=== PATIENT | female | born 1945 | race Caucasian/White ===

== ENCOUNTER 2024-11-06 17:28 | Outpatient (CLI) | payer MEDICARE, SELFPAY ==
--- NOTE | 2024-11-06 16:30 | LES_PTH ---
PATIENT: LUCY PEREIRA LOC: [facility] U#:[id number] AGE/SX: 79/F ROOM: RE11/06/[address]: Dr. Gerry Alvarez MD : 1945 BED: DIS: 11/06/2024 SPEC #: [id number] RECD: 11/06/24 17:20 STATUS: DOUGLAS REObdulio #: [id number] LUCRETIA: 11/06/24 16:[address]: Gerry Alvarez DEPT: SURGICAL PATHOLOGY RECD BY: Sarah Berger ENTERED: 11/07/24 07:32 SP TYPE: Lesion OTHR DR: No Primary Care Phys Tissues: Axilla, NOS Procedures: Immunohistochemical Stains Special Stain Group I Surgery Specimen Level IV GMS Stain (control) HEADER OPERATION: Biopsy of right axillary PRE-OP DIAGNOSIS: Right axillary TISSUE SUBMITTED: A- Right axillary punch biopsy MICROSCOPIC DIAGNOSIS A. Skin, right axilla, punch biopsy: * Ulceration with neutrophil crust. * A PASD stain is negative for fungal organisms. MICROSCOPIC DESCRIPTION Slides are reviewed. All matched controls reacted appropriately. These tests were developed and their performance characteristics determined by [facility]. They may not have been cleared or approved by the U.S. Food and Drug Administration. The FDA has determined that such clearance or approval is not necessary. The above immunohistochemical/dualISH markers are ordered and reviewed by the Pathologist. GROSS DESCRIPTION A. Received in formalin in a container labeled with the patient's name, date of , and biopsy right axillary is an unoriented and cylindrical punch biopsy of white-rivera skin measuring 0.6 x 0.5 cm with a depth of 0.6 cm. The epidermis exhibits a 0.5 x 0.2 cm rivera-yellow, raised, and roughened lesion that abuts the peripheral margin. The remaining epidermis is white-rivera and smooth. The deep margin is inked green, and it is bisected to reveal uniform white-lott surfaces. Submitted entirely in A1. [facility] 12/19/2024 CPT:00747, [id number] ADDENDUM ADDENDUM ADDENDUM ADDENDUM 12/23/2024 13:34 ADDENDUM 12/23/2024 13:34 ADDENDUM 12/23/2024 13:34 ADDENDUM 12/23/2024 13:34 ADDENDUM 12/23/2024 13:34 This case was reviewed at Dr Marvin Alvarez's request. The tissue is negative for evidence of metastatic carcinoma (pankeratin IHC and recut H&E).
== END 2024-11-06 23:59 | disposition home or self-care (01) ==
PROVIDERS: Referring Provider Surgery Plastic and Reconstructive Surgery; Visit Provider Surgery Plastic and Reconstructive Surgery
DX: L98.499 Non-pressure chronic ulcer of skin of other sites with unspecified severity (principal)
CPT/HCPCS: 88305; 88312

== ENCOUNTER → 2024-11-21 | Outpatient (CLI) | payer MEDICARE, SELFPAY ==
--- NOTE | 2024-11-21 13:00 | UL_PTH ---
PATIENT: LUCY PEREIRA LOC: [facility] U#:[id number] AGE/SX: 79/F ROOM: RE11/21/[address]: Dr. Gerry Alvarez MD : 1945 BED: DIS: 11/21/2024 SPEC #: [id number] RECD: 11/21/24 17:38 STATUS: DOUGLAS VAUGHN #: [id number] LUCRETIA: 11/21/24 13:[address]: Gerry Alvarez DEPT: SURGICAL PATHOLOGY RECD BY: Jose Miguel Macdonald ENTERED: 11/24/24 07:21 SP TYPE: ULCER OT DR: No Primary Care Phys Tissues: A - ULCER B - ULCER Procedures: Immunohistochemical Stains Special Stain Group I Surgery Specimen Level III GMS Stain (control) IHC Stain ADDITIONAL HEADER OPERATION: Biopsy PRE-OP DIAGNOSIS: Axillary ulcers TISSUE SUBMITTED:A- Medial axillary ulcer, B- Lateral axillary ulcer MICROSCOPIC DIAGNOSIS A. Skin, medial axilla, ulcer, punch biopsy: * Cutaneous ulceration. * PASD stain is negative for fungal organisms. B. Skin, lateral axilla, ulcer, punch biopsy: * Cutaneous ulceration with focal foreign body type giant cells. * Birefringent foreign particles are focally identified with polarized light. * PASD stain is negative for fungal organisms. MICROSCOPIC DESCRIPTION Slides are reviewed. All matched controls reacted appropriately. These tests were developed and their performance characteristics determined by [facility]. They may not have been cleared or approved by the U.S. Food and Drug Administration. The FDA has determined that such clearance or approval is not necessary.? The above immunohistochemical/dualISH?markers are ordered and reviewed by the Pathologist. GROSS DESCRIPTION A. Received in formalin in a container labeled with the patient's name, date of , and medial axillary ulcer is an unoriented and cylindrical punch biopsy of white-rivera skin measuring 0.7 x 0.5 cm with a depth up to 0.4 cm. The white-rivera epidermis exhibits a 0.5 x 0.5 cm roughened rivera-brown ulcerated lesion that abuts the peripheral margin. The deep margin is inked green, and it is trisected to reveal that the ulcerated lesion appears confined to the epidermis. Submitted entirely in A1. B. Received in formalin in a container labeled with the patient's name, date of , and lateral axillary ulcer is an unoriented and cylindrical punch biopsy of white-rivera skin measuring 0.6 x 0.5 cm with a depth of 0.3 cm. The epidermis is diffusely roughened with a 0.3 x 0.2 cm red-brown possible ulcer that abuts the peripheral margin. The deep margin is inked green, and it is bisected to reveal that the possible ulcer and roughened area are confined to the epidermis. Submitted entirely in B1. [facility] 11-24-2024 CPT:90017k3, [id number],96205 ADDENDUM ADDENDUM ADDENDUM ADDENDUM ADDENDUM ADDENDUM 12/23/2024 13:31 ADDENDUM 12/23/2024 13:31 ADDENDUM 12/23/2024 13:31 ADDENDUM 12/23/2024 13:31 ADDENDUM 12/23/2024 13:31 This case was reviewed at Dr Marvin Alvarez's request. Part A is negative for evidence of metastatic carcinoma (Pankeratin IHC and recut H&E). Part B iis negative for metastatic carcinoma (Pankeratin and Estrogen Receptor IHCs, recut H&E).
== END | disposition home or self-care (01) ==
LOC: LABSPEC 11-24 07:52
PROVIDERS: Referring Provider Surgery Plastic and Reconstructive Surgery; Visit Provider Surgery Plastic and Reconstructive Surgery
DX: L98.499 Non-pressure chronic ulcer of skin of other sites with unspecified severity (principal)
CPT/HCPCS: 88304

== ENCOUNTER 2024-12-18 15:00 | Outpatient (RCR) | payer MEDICARE, SELFPAY ==
[2024-12-01 14:28] VITALS: BP 127/70; PULSE 101; RESP 14; TEMP 36.6
--- NOTE | 2024-12-02 09:56 | HP.PCM_ITS ---
History of Present Illness Date of Service: 12/01/24 History of Wound: Geovanna Mccain is a delightful 79-year-old female with comp licated past medical history including ER/MS positive right-sided breast cancer diagnosed in 2006 treated with a mastectomy by Dr. Mckinney at [facility] with implant-based reconstruction with Dr. Torsten Amaya. She had a regional recurrence in the right axilla approximately 10 years later and underwent axillary dissection with 7 positive nodes and required radiation and is on maintenance chemotherapy. She was doing well for a while and unfortunately developed a right axillary wound several months ago. There is 2 x 2 cm area in the right axilla of central ulceration. There is minimal pain associated with it (limited sensation in her axilla after the radiation). Patient is not a smoker. 21 NOV 2024: Patient doing well overall. She has been doing wound care with [facility] twice daily. Biopsy results were reviewed with the patient today in clinic and did not demonstrate any specific findings (neutrophilic infiltrate). I discussed the findings with Dr. Drew, as well as the patient. I talked to Dr. Drew about her recent surveillance CT scan as well, which did not demonstrate any specific signs for cancer recurrence in the axilla. I recommended a repeat biopsy to be done in clinic today, which was agreed upon by Mr. Quinones and Dr. Drew. CURRENT ENCOUNTER, 01 Dec 2024: Doing well overall. I do not have biopsy results yet from 21 Nov 2024. PFSH Home Medications ?Medication ?Instructions ?Recorded ?Last Taken ?Type cholecalciferol (vitamin D3) 10 10 mcg PO QDAY 5 Unknown History mcg (400 unit) capsule multivitamin 1 tab PO QDAY 11/06/24 Unkno wn History sertraline 50 mg tablet (Zoloft) 50 mg PO QDAY 5 Unknown History simvastatin 20 mg tablet 20 mg PO QDAY 11/06/24 Unkno wn History Allergy/AdvReac Type Severity Reaction Status Date / Time No Known Allergies Allergy Unverified 11/21/24 13:05 Vital Signs Vital Signs Vital Signs: 12/01/24 14:28 Temperature 97.9 F Temperature Source Temporal Pulse Rate 101 H Respiratory Rate 14 Blood Pressure 127/70 H Blood Pressure Mean 89 Blood Pressure Source Monitor Blood Pressure Position Sitting Blood Pressure Location Left Arm Physical Exam Narrative 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 The underlying indurated tissue is fixed/immobile. Reticular blood vessels/skin changes consistent with radiation damage. Debridement Note Debridement Note Wound debrided: Right axillary wound Laterality: Right Wound Grade/Stage: Stage III Type of Debridement: Excisional debridement Anesthesia Used: 4% Lidocaine Solution Depth: in the subcutaneous layer Percentage of wound debrided: 100 Instrument Used: 7mm curette, Forceps and - (Scissors for sharp excision) Tissue Removed: Necrotic fibrinous exudate and fat, biofilm Severity: Fat Layer Exposed Amount of bleeding with debridement: Mild Bleeding Controlled with: Compression and gauze Patient tolerated procedure: Patient tolerated procedure well Post-Debridement Measurements and Additional Note: Post-Debridement Measurements/Treatment WC - Nurse 1 - General Ulcer Assessment Start: 12/01/24 14:28 Freq: Status: Active Protocol: JOLIE Activity Type Activity Date Activity User E-sign Co-sign Detail Recorded Client Recorded Date Recorded By Document 12/01/24 14:28 ML [id number] 12/01/24 14:35 ML 12/01/24 14:28 WC - Today's Visit Information Type of service Initial Visit Arrival Mode Ambulatory Transfer Assistance None Patient Identification Verified (Name & Yes ) Patient Requires Transmission-Based No Precautions Vital Signs Temperature (97.8 F-99.1 F) 97.9 F Temperature Source Temporal Pulse Rate (60-100) 101 H Pulse Location Monitor Respiratory Rate (12-18) 14 Respiratory rate source Observation Blood Pressure (90/60-120/80) 127/70 H Blood Pressure Mean 89 Source Monitor Position Sitting Blood Pressure Location Left Arm Pain Scale: 0-10 Numeric Is Patient Pain Free? Yes - Nurse 1 - General Ulcer Measurement Start: 12/01/24 14:28 Freq: Status: Active Protocol: Activity Type Activity Date Activity User E-sign Co-sign Detail Recorded Client Recorded Date Recorded By Document 12/01/24 14:28 ML [id number] 12/01/24 14:35 ML 12/01/24 14:28 Wound Center Nurse 1 RIGHT AXILLA -Current Size (cm) - Length 2 -Current Size (cm) - Width 2.5 -Current Size (cm) - Depth 0.1 -Total Square Cm 5.0 -Exudate Amt Small -Exudate Type Serosanguineous -Wound Margin Distinct, Outline Attached -Necrosis Amt Small (1-33%) -Texture (Tania-wound Skin Appearance) Assessed -Moisture (Tania-wound Skin Appearance) Assessed -Temperature (Tania-wound Skin No Abnormality Appearance) (Pt Warm) -Tenderness on Palpation (Tania-wound No Skin Appearance) -Ulcer Cleansing Rinsed/ Irrigated with Saline -Foul Odor after Cleansing No -Anesthetic Used 5% Lidocaine Gel - Nurse 2 - General Ulcer CM Notes Start: 12/01/24 14:28 Freq: Status: Active Protocol: Activity Type Activity Date Activity User E-sign Co-sign Detail Recorded Client Recorded Date Recorded By Document 12/01/24 14:52 [id number] 12/01/24 14:57 12/01/24 14:52 Wound Center Nurse 2 -Time 14:52 -Correct Patient Yes -Correct Side, Site, Position Yes -Correct Procedure Yes -Procedure Performed Yes -Type of Procedure Debridement -Clinical Debridement Subcutaneous -Tissue Removed Subcutaneous -Post Debridement (cm) - Length 2.0 -Post Debridement (cm) - Width 1.5 -Post Debridement (cm) - Depth 0.5 -Total Square (Post) (cm) 3.00 -Area of Debridement (cm) - Length 2.0 -Area of Debridement (cm) - Width 1.5 -Total Square (Area) (cm) 3.00 -Tunneling No -Undermining/Tunneling No -Circular Undermining No -Wound/Ulcer Outcome Not Healed -Ulcer Cleansing Rinsed/ Irrigated with Saline -Foul Odor after Cleansing No -Bioengineered Tissue No -Bleeding Controlled with Pressure -Treatment Response Procedure Tolerated Well -Offloading No -Debridement - Subq, 1st 20sq cm Yes Pain Scale: 0-10 Numeric Is Patient Pain Free? Yes - Nurse 3 - General Ulcer D/C NN Start: 12/01/24 14:28 Freq: Status: Active Protocol: Activity Type Activity Date Activity User E-sign Co-sign Detail Recorded Client Recorded Date Recorded By Document 12/01/24 15:08 [facility] [id number] 12/01/24 15:09 [facility] 12/01/24 15:08 Wound Care Center Nurse 3 RIGHT AXILLA -Ulcer Cleansing Rinsed/ Irrigated with Saline -Foul Odor after Cleansing No -Primary Dressing Applied Fibracol Plus 4x4 -Primary Dressing Covered/Secured with Dry Gauze, Secured with Tape -Fibracol Plus 4x4 1 Treatment Response Procedure Tolerated Well Pain Scale: 0-10 Numeric Is Patient Pain Free? Yes WC - Visit Discharge Discharge Condition Stable Ambulatory Status Ambulatory Transportation Private Auto Charges/Coding Procedures Integumentary 111xxx-113xx: 90862 Crystal subq tissue 20 sq cm/< Assessment/Plan Assessment/Plan (1) Open wound of axillary region, complicated: CODE(S): S41.109A - Unspecified open wound of unspecified upper arm, initial encounter PLAN: Plan I talked to the patient about options for local wound care versus excision of the ulcer with replacement of nonradiated tissue from a parascapular flap as an option. She would like to attempt local wound care first (if no malignancy identified) and her backup option will be to excise the ulcer in the radiated skin with reconstruction using a fasciocutaneous parascapular flap. Follow-up biopsy results and return to clinic at the wound care center on 01 Dec 2024 Case discussed again today with Dr. Drew, patient's oncologist at [facility] Hematology/Oncology (referring physician). Plan from 01 Dec 2024: Plan to follow-up biopsy results. Patient is not interested in surgery at this time and would like to continue to do clinic debridements and wound care if possible. Plan for follow-up in clinic in 1 week. Patient will begin Fibracol collagen dressings to the right axilla. Patient and her daughter (present at the visit today) happy with the plan.
--- NOTE | 2024-12-18 14:22 | PN.PCM_ITS ---
History of Present Illness Date of Service: 12/18/24 History of Wound: Lucy Mccain is a delightful 79-year-old female with comp licated past medical history including ER/[place] positive right-sided breast cancer diagnosed in 2006 treated with a mastectomy by Dr. Mckinney at [facility] with implant-based reconstruction with Dr. Torsten Amaya. She had a regional recurrence in the right axilla approximately 10 years later and underwent axillary dissection with 7 positive nodes and required radiation and is on maintenance chemotherapy. She was doing well for a while and unfortunately developed a right axillary wound several months ago. There is 2 x 2 cm area in the right axilla of central ulceration. There is minimal pain associated with it (limited sensation in her axilla after the radiation). Patient is not a smoker. 21 NOV 2024: Patient doing well overall. She has been doing wound care with [facility] twice daily. Biopsy results were reviewed with the patient today in clinic and did not demonstrate any specific findings (neutrophilic infiltrate). I discussed the findings with Dr. Drew, as well as the patient. I talked to Dr. Drew about her recent surveillance CT scan as well, which did not demonstrate any specific signs for cancer recurrence in the axilla. I recommended a repeat biopsy to be done in clinic today, which was agreed upon by Kaylee Joni and Dr. Drew. 01 Dec 2024: Doing well overall. I do not have biopsy results yet from 21 Nov 2024. 18 Dec 2024: Doing well. Discussed biopsy results (negative for carcinoma/malignancy x 2, just showed ulceration). Objective Data Objective Data LUCY MCCAIN 79/F LABSPEC [id number] Dr. Gerry Alvarez MD Specimen: [id number] Received: 11/21/24 [facility] Num: [id number] Spec Type: ULCER Subm Dr: Dr. Gerry Alvarez MD HEADER OPERATION: Biopsy PRE-OP DIAGNOSIS: Axillary ulcers TISSUE SUBMITTED:A- Medial axillary ulcer, B- Lateral axillary ulcer MICROSCOPIC DIAGNOSIS A. Skin, medial axilla, ulcer, punch biopsy: * Cutaneous ulceration. * PASD stain is negative for fungal organisms. B. Skin, lateral axilla, ulcer, punch biopsy: * Cutaneous ulceration with focal foreign body type giant cells. * Birefringent foreign particles are focally identified with polarized light. * PASD stain is negative for fungal organisms. 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 The underlying indurated tissue is fixed/immobile. Reticular blood vessels/skin changes consistent with radiation damage. Debridement Note Debridement Note Wound debrided: Right axillary wound Laterality: Right Wound Grade/Stage: Right Type of Debridement: Excisional debridement Anesthesia Used: 4% Lidocaine Solution Depth: in the subcutaneous layer Percentage of wound debrided: 100 Instrument Used: 7mm curette Tissue Removed: Necrotic fibrinous exudate at the fat level Severity: Fat Layer Exposed Amount of bleeding with debridement: Mild Bleeding Controlled with: Compression and gauze Patient tolerated procedure: Patient tolerated procedure well Post-Debridement Measurements and Additional Note: Post-Debridement Measurements/Treatment WC - Nurse 1 - General Ulcer Assessment Start: 12/01/24 14:28 Freq: Status: Active Protocol: JOLIE Activity Type Activity Date Activity User E-sign Co-sign Detail Recorded Client Recorded Date Recorded By Document 12/01/24 14:28 ML [id number] 12/01/24 14:35 ML 12/01/24 14:28 - Today's Visit Information Type of service Initial Visit Arrival Mode Ambulatory Transfer Assistance None Patient Identification Verified (Name & Yes ) Patient Requires Transmission-Based No Precautions Vital Signs Temperature (97.8 F-99.1 F) 97.9 F Temperature Source Temporal Pulse Rate (60-100) 101 H Pulse Location Monitor Respiratory Rate (12-18) 14 Respiratory rate source Observation Blood Pressure (90/60-120/80) 127/70 H Blood Pressure Mean (mm Hg) 89 Source Monitor Position Sitting Blood Pressure Location Left Arm Pain Scale: 0-10 Numeric Is Patient Pain Free? Yes SHANNON - Nurse 1 - General Ulcer Measurement Start: 12/01/24 14:28 Freq: Status: Active Protocol: Activity Type Activity Date Activity User E-sign Co-sign Detail Recorded Client Recorded Date Recorded By Document 12/01/24 14:28 ML [id number] 12/01/24 14:35 ML 12/01/24 14:28 Wound Center Nurse 1 RIGHT AXILLA -Current Size (cm) - Length 2 -Current Size (cm) - Width 2.5 -Current Size (cm) - Depth 0.1 -Total Square Cm 5.0 -Exudate Amt Small -Exudate Type Serosanguineous -Wound Margin Distinct, Outline Attached -Necrosis Amt Small (1-33%) -Texture (Tania-wound Skin Appearance) Assessed -Moisture (Tania-wound Skin Appearance) Assessed -Temperature (Tania-wound Skin No Abnormality Appearance) (Pt Warm) -Tenderness on Palpation (Tania-wound No Skin Appearance) -Ulcer Cleansing Rinsed/ Irrigated with Saline -Foul Odor after Cleansing No -Anesthetic Used 5% Lidocaine Gel WC - Nurse 2 - General Ulcer CM Notes Start: 12/01/24 14:28 Freq: Status: Active Protocol: Activity Type Activity Date Activity User E-sign Co-sign Detail Recorded Client Recorded Date Recorded By Document 12/01/24 14:52 [id number] 12/01/24 14:57 JF 12/01/24 14:52 Wound Center Nurse 2 -Time 14:52 -Correct Patient Yes -Correct Side, Site, Position Yes -Correct Procedure Yes -Procedure Performed Yes -Type of Procedure Debridement -Clinical Debridement Subcutaneous -Tissue Removed Subcutaneous -Post Debridement (cm) - Length 2.0 -Post Debridement (cm) - Width 1.5 -Post Debridement (cm) - Depth 0.5 -Total Square (Post) (cm) 3.00 -Area of Debridement (cm) - Length 2.0 -Area of Debridement (cm) - Width 1.5 -Total Square (Area) (cm) 3.00 -Tunneling No -Undermining/Tunneling No -Circular Undermining No -Wound/Ulcer Outcome Not Healed -Ulcer Cleansing Rinsed/ Irrigated with Saline -Foul Odor after Cleansing No -Bioengineered Tissue No -Bleeding Controlled with Pressure -Treatment Response Procedure Tolerated Well -Offloading No -Debridement - Subq, 1st 20sq cm Yes Pain Scale: 0-10 Numeric Is Patient Pain Free? Yes WC - Nurse 3 - General Ulcer D/C NN Start: 12/01/24 14:28 Freq: Status: Active Protocol: Activity Type Activity Date Activity User E-sign Co-sign Detail Recorded Client Recorded Date Recorded By Document 12/01/24 15:08 [facility] [id number] 12/01/24 15:09 [facility] 12/01/24 15:08 Wound Care Center Nurse 3 RIGHT AXILLA -Ulcer Cleansing Rinsed/ Irrigated with Saline -Foul Odor after Cleansing No -Primary Dressing Applied Fibracol Plus 4x4 -Primary Dressing Covered/Secured with Dry Gauze, Secured with Tape -Fibracol Plus 4x4 1 Treatment Response Procedure Tolerated Well Pain Scale: 0-10 Numeric Is Patient Pain Free? Yes WC - Visit Discharge Discharge Condition Stable Ambulatory Status Ambulatory Transportation Private Auto Assessment/Plan Assessment/Plan (1) Open wound of axillary region, complicated: CODE(S): S41.109A - Unspecified open wound of unspecified upper arm, initial encounter PLAN: Plan I talked to the patient about options for local wound care versus excision of the ulcer with replacement of nonradiated tissue from a parascapular flap as an option. She would like to attempt local wound care first (if no malignancy identified) and her backup option will be to excise the ulcer in the radiated skin with reconstruction using a fasciocutaneous parascapular flap. Follow-up biopsy results and return to clinic at the wound care center on 01 Dec 2024 Case discussed again today with Dr. Drew, patient's oncologist at [facility] Hematology/Oncology (referring physician). Plan from 01 Dec 2024: Plan to follow-up biopsy results. Patient is not interested in surgery at this time and would like to continue to do clinic debridements and wound care if possible. Plan for follow-up in clinic in 1 week. Patient will begin Fibracol collagen dressings to the right axilla. Patient and her daughter (present at the visit today) happy with the plan. Plan from 18 Dec 2024: Right axillary wound without malignancy on repeat biopsies (negative punch biopsies x 3 for malignancy). Patient would like to continue wound care rather than excision and reconstruction. Plan will be for continued Fibracol dressings to the right axilla. Patient happy with the plan. Follow-up in 2.5-weeks
[2024-12-18 15:01] VITALS: BP 132/56; PULSE 95; RESP 18; TEMP 36.7
== END 2024-12-20 23:59 | disposition home or self-care (01) ==
LOC: WC 15:00
PROVIDERS: Referring Provider Surgery Plastic and Reconstructive Surgery; Visit Provider Surgery Plastic and Reconstructive Surgery
DX: L98.492 Non-pressure chronic ulcer of skin of other sites with fat layer exposed (principal); Z79.899 Other long term (current) drug therapy; Z85.3 Personal history of malignant neoplasm of breast; Z90.11 Acquired absence of right breast and nipple
CPT/HCPCS: 11042; 99214; G0463

== ENCOUNTER 2025-01-12 15:30 | Outpatient (RCR) | payer MEDICARE, SELFPAY ==
[2024-12-21 00:21] VITALS: BP 132/56; PULSE 95; RESP 18; TEMP 36.7
--- NOTE | 2024-12-29 08:29 | PN.PCM_ITS ---
History of Present Illness Date of Service: 12/29/24 History of Wound: Geovanna Mccain is a delightful 79-year-old female with comp licated past medical history including ER/CT positive right-sided breast cancer diagnosed in 2006 treated with a mastectomy by Dr. Mckinney at [facility] with implant-based reconstruction with Dr. Torsten Amaya. She had a regional recurrence in the right axilla approximately 10 years later and underwent axillary dissection with 7 positive nodes and required radiation and is on maintenance chemotherapy. She was doing well for a while and unfortunately developed a right axillary wound several months ago. There is 2 x 2 cm area in the right axilla of central ulceration. There is minimal pain associated with it (limited sensation in her axilla after the radiation). Patient is not a smoker. 21 NOV 2024: Patient doing well overall. She has been doing wound care with [facility] twice daily. Biopsy results were reviewed with the patient today in clinic and did not demonstrate any specific findings (neutrophilic infiltrate). I discussed the findings with Dr. Drew, as well as the patient. I talked to Dr. Drew about her recent surveillance CT scan as well, which did not demonstrate any specific signs for cancer recurrence in the axilla. I recommended a repeat biopsy to be done in clinic today, which was agreed upon by Joni and Dr. Drew. 01 Dec 2024: Doing well overall. I do not have biopsy results yet from 21 Nov 2024. 18 Dec 2024: Doing well. Discussed biopsy results (negative for carcinoma/malignancy x 2, just showed ulceration). Subjective Subjective CURRENT ENCOUNTER, 29 December 2024: Doing well overall. Here for wound care follow up. Reports that the wound is smaller and has been weeping less. No fevers or chills. 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 The underlying indurated tissue is fixed/immobile. Reticular blood vessels/skin changes consistent with radiation damage. Debridement Note Debridement Note Wound debrided: Right axillary wound Laterality: Right Wound Grade/Stage: Stage 3 Type of Debridement: Excisional debridement Anesthesia Used: 4% Lidocaine Solution Depth: in the subcutaneous layer Instrument Used: 5mm curette, Forceps and - (scissors for sharp excision ) Tissue Removed: necrotic biofilm and fibrinous exudate Severity: Fat Layer Exposed Amount of bleeding with debridement: Mild Bleeding Controlled with: Compression and gauze Patient tolerated procedure: Patient tolerated procedure well Debridement Free Text: Debrided film and exudate within the wound base using the above noted instrumentation. The base of the wound had healthy red granulation tissue at completion. Assessment/Plan Assessment/Plan (1) Open wound of axillary region, complicated: CODE(S): S41.109A - Unspecified open wound of unspecified upper arm, initial encounter PLAN: Plan I talked to the patient about options for local wound care versus excision of the ulcer with replacement of nonradiated tissue from a parascapular flap as an option. She would like to attempt local wound care first (if no malignancy identified) and her backup option will be to excise the ulcer in the radiated skin with reconstruction using a fasciocutaneous parascapular flap. Follow-up biopsy results and return to clinic at the wound care center on 01 Dec 2024 Case discussed again today with Dr. Drew, patient's oncologist at [facility] (referring physician). Plan from 01 Dec 2024: Plan to follow-up biopsy results. Patient is not interested in surgery at this time and would like to continue to do clinic debridements and wound care if possible. Plan for follow-up in clinic in 1 week. Patient will begin Fibracol collagen dressings to the right axilla. Patient and her daughter (present at the visit today) happy with the plan. Plan from 18 Dec 2024: Right axillary wound without malignancy on repeat biopsies (negative punch biopsies x 3 for malignancy). Patient would like to continue wound care rather than excision and reconstruction. Plan will be for continued Fibracol dressings to the right axilla. Patient happy with the plan. Follow-up in 2.5-weeks Guillermo from 29 December 2024: Doing well overall. Fibracol dressings daily. F/u in 2 weeks.
[2024-12-29 08:53] VITALS: BP 170/100; PULSE 86; RESP 18; TEMP 36.2
[2024-12-29 09:20] VITALS: BP 171/77; PULSE 78
--- NOTE | 2024-12-30 09:50 | WC ---
PHOTO 12/29/24 RIGHT AXILLA
[2025-01-12 15:21] VITALS: BP 173/77; PULSE 91; RESP 18; TEMP 36.1
--- NOTE | 2025-01-13 09:27 | PCM.WC.PN ---
History of Present Illness Date of Service: 01/12/25 History of Wound: Geovanna Mccain is a delightful 79-year-old female with complicated past medical history including ER/[place] positive right-sided breast cancer diagnosed in 2006 treated with a mastectomy by Dr. Mckinney at [facility] with implant-based reconstruction with Dr. Torsten Amaya. She had a regional recurrence in the right axilla approximately 10 years later and underwent axillary dissection with 7 positive nodes and required radiation and is on maintenance chemotherapy. She was doing well for a while and unfortunately developed a right axillary wound several months ago. There is 2 x 2 cm area in the right axilla of central ulceration. There is minimal pain associated with it (limited sensation in her axilla after the radiation). Patient is not a smoker. 21 NOV 2024: Patient doing well overall. She has been doing wound care with [facility] twice daily. Biopsy results were reviewed with the patient today in clinic and did not demonstrate any specific findings (neutrophilic infiltrate). I discussed the findings with Dr. Drew, as well as the patient. I talked to Dr. Drew about her recent surveillance CT scan as well, which did not demonstrate any specific signs for cancer recurrence in the axilla. I recommended a repeat biopsy to be done in clinic today, which was agreed upon by Joni and Dr. Drew. 01 Dec 2024: Doing well overall. I do not have biopsy results yet from 21 Nov 2024. 18 Dec 2024: Doing well. Discussed biopsy results (negative for carcinoma/malignancy x 2, just showed ulceration). Subjective Subjective 29 December 2024: Doing well overall. Here for wound care follow up. Reports that the wound is smaller. No fevers or chills. CURRENT ENCOUNTER, 12 January 2025: The patient is a 79-year-old female presenting with a right axillary wound. The wound has been undergoing reepithelialization, with new skin forming over the affected area. The patient has been following wound care instructions, which include applying a specific ointment to promote healing. Attestation: Documentation on this patient encounter was supported using ambient scribe technology/ voice AI technology. The patient consented to recording for the purpose of documenting the encounter. Provider reviewed content of the generated note prior to signature. Objective Data Objective Data - Integumentary: Reports healing of right axillary wound, denies signs of infection - Ophthalmologic: Reports vision impairment due to macular degeneration, denies recent changes in vision Vital Signs: Vital Signs Temp Pulse Resp BP O2 Del Method 96.9 F L 91 18 173/77 H Room Air 01/12/25 15:21 01/12/25 15:21 01/12/25 15:21 01/12/25 15:21 01/12/25 15:21 Oxygen Delivery Method Room Air Charges/Coding Visit Charges Office Visits / Consults: 27221 OV L3 Est 20min Physical Exam Narrative - Right axillary wound: Reepithelialization observed, no signs of infection - Skin: Presence of healed skin in the middle with two small wounds, new skin formation noted Debridement Note Debridement Note No debridement was completed: No debridement was completed today Post-Debridement Measurements and Additional Note: Post-Debridement Measurements/Treatment - Nurse 1 - General Ulcer Assessment Start: 12/29/24 08:53 Freq: Status: Active Protocol: JOLIE Activity Type Activity Date Activity User E-sign Co-sign Detail Recorded Client Recorded Date Recorded By Document 12/29/24 08:53 [id number] 12/29/24 08:57 KW Document 12/29/24 09:20 JF [id number] 12/29/24 09:21 Document 01/12/25 15:21 KW [id number] 01/12/25 15:26 KW 12/29/24 12/29/24 01/12/25 08:53 09:20 15:21 - Today's Visit Information Type of service Follow-up Visit Follow-up Visit Follow-up Visit (Physician/CENTERLESS GRINDER TENDER (Physician/CENTERLESS GRINDER TENDER (Physician/CENTERLESS GRINDER TENDER ) ) ) Arrival Mode Ambulatory Ambulatory Transfer Assistance Braydon Lift Accompanied by daughter Patient Identification Verified (Name & No Yes ) Vital Signs Temperature (97.8 F-99.1 F) 97.2 F L 96.9 F L Temperature Source Temporal Temporal Pulse Rate (60-100) 86 78 91 Pulse Location Monitor Monitor Monitor Respiratory Rate (12-18) 18 18 Respiratory rate source Monitor Observation Oxygen Delivery Method Room Air Room Air Blood Pressure (90/60-120/80) 170/100 H 171/77 H 173/77 H Blood Pressure Mean (mm Hg) 123 108 109 Source Monitor Monitor Monitor Position Semi-Fowlers Semi-Fowlers Semi-Fowlers Blood Pressure Location Right Arm Left Arm Right Arm History Since Last Visit- (Skip if this is Patient's initial visit) Have you changed medications since your No No last visit? Any new allergies or adverse reactions No No Had a fall/change in ADL's that may No No increase risk of falls Signs or symptoms of abuse and/or No No neglect since last visit Have you been in the hospital since your No No last visit? Has dressing in place as prescribed Yes Yes Has compression in place as prescribed N/A N/A Has offloadiing in place as prescribed N/A N/A Experienced any changes in pain level or No No management Left Footwear Regular Shoe Regular Shoe Right Footwear Regular Shoe Regular Shoe Pain Scale: 0-10 Numeric Is Patient Pain Free? Yes Yes Yes WC - Nurse 1 - General Ulcer Measurement Start: 12/29/24 08:53 Freq: Status: Active Protocol: Activity Type Activity Date Activity User E-sign Co-sign Detail Recorded Client Recorded Date Recorded By Document 12/29/24 08:53 [id number] 12/29/24 08:57 Document 01/12/25 15:21 [id number] 01/12/25 15:26 KW 12/29/24 01/12/25 08:53 15:21 Wound Center Nurse 1 RIGHT AXILLA -Current Size (cm) - Length 1 1.5 -Current Size (cm) - Width 1.7 0.5 -Current Size (cm) - Depth 0.2 0.1 -Total Square Cm 1.7 0.75 -Date of Last Picture (Recall this 12/29/24 01/12/25 field) -Epithelialization Large 67-100% -Exudate Amt Small Small -Exudate Type Serosanguineous Serosanguineous -Wound Margin Distinct, Distinct, Outline Outline Attached Attached -Granulation Amt Small (1-33%) Large (67-100%) -Granulation Quality [place] -Necrosis Amt Large (67-100%) Small (1-33%) -Necrotic Tissue Type Adherent Slough Adherent Slough -Texture (Tania-wound Skin Appearance) Assessed Assessed, Scarring -Moisture (Tania-wound Skin Appearance) Assessed Assessed -Color (Tania-wound Skin Appearance) Assessed Assessed -Temperature (Tania-wound Skin No Abnormality No Abnormality Appearance) (Pt Warm) (Pt Warm) -Tenderness on Palpation (Tania-wound No No Skin Appearance) -Ulcer Cleansing Rinsed/ Soap and Water Irrigated with Saline -Foul Odor after Cleansing No No -Anesthetic Used 5% Lidocaine 5% Lidocaine Gel Gel WC - Nurse 2 - General Ulcer CM Notes Start: 12/29/24 08:53 Freq: Status: Active Protocol: Activity Type Activity Date Activity User E-sign Co-sign Detail Recorded Client Recorded Date Recorded By Document 12/29/24 09:08 JF [id number] 12/29/24 09:11 JF Document 01/12/25 15:38 DS [id number] 01/12/25 15:39 DS 12/29/24 01/12/25 09:08 15:38 Wound Center Nurse 2 RIGHT AXILLA -Time 09:09 15:38 -Correct Patient Yes Yes -Correct Side, Site, Position Yes Yes -Correct Procedure Yes -Procedure Performed Yes No -Type of Procedure Debridement -Clinical Debridement Subcutaneous -Tissue Removed Subcutaneous -Post Debridement (cm) - Length 2.0 1.0 -Post Debridement (cm) - Width 1.0 1.0 -Post Debridement (cm) - Depth 0.2 0.2 -Total Square (Post) (cm) 2.00 1.00 -Area of Debridement (cm) - Length 2.0 1.0 -Area of Debridement (cm) - Width 1.0 1.0 -Total Square (Area) (cm) 2.00 1.00 -Tunneling No No -Undermining/Tunneling No No -Circular Undermining No No -Wound/Ulcer Outcome Not Healed Not Healed -Ulcer Cleansing Rinsed/ Irrigated with Saline -Foul Odor after Cleansing No -Bioengineered Tissue No -Bleeding Controlled with Pressure -Treatment Response Procedure Tolerated Well -Offloading No -Debridement - Subq, 1st 20sq cm Yes Pain Scale: 0-10 Numeric Is Patient Pain Free? Yes Yes WC - Nurse 3 - General Ulcer D/C NN Start: 12/29/24 08:53 Freq: Status: Active Protocol: Activity Type Activity Date Activity User E-sign Co-sign Detail Recorded Client Recorded Date Recorded By Document 12/29/24 09:12 JF [id number] 12/29/24 09:13 JF Document 01/12/25 15:48 DL [id number] 01/12/25 15:48 DL 12/29/24 01/12/25 09:12 15:48 Wound Care Center Nurse 3 RIGHT AXILLA -Ulcer Cleansing Rinsed/ Rinsed/ Irrigated with Irrigated with Saline Saline -Foul Odor after Cleansing No No -Primary Dressing Applied Fibracol Plus Fibracol Plus 4x4 4x4 -Primary Dressing Covered/Secured with Dry Gauze, Dry Gauze, Secured with Secured with Tape Tape -Fibracol Plus 4x4 1 1 Treatment Response Procedure Tolerated Well Pain Scale: 0-10 Numeric Is Patient Pain Free? Yes Yes WC - Visit Discharge Discharge Condition Stable Stable Ambulatory Status Ambulatory Ambulatory Transportation Private Auto Private Auto Accompanied by daughter Medication Reconcilliation completed & Yes provided to patient/care provider Clinical Summary of Care Provided Yes Assessment/Plan Assessment/Plan (1) Open wound of axillary region, complicated: CODE(S): S41.109A - Unspecified open wound of unspecified upper arm, initial encounter PLAN: Plan Assessment and Plan The 79-year-old female with a history of macular degeneration presents with a right axillary wound. The wound is showing signs of reepithelialization, indicating positive healing progress without signs of infection. The patient is advised to continue current wound care practices and return for follow-up in three weeks to assess further healing. Her macular degeneration continues to affect her vision, and she remains under the care of a retina specialist. She is considering cataract surgery but is cautious due to her existing condition. 1. Right Axillary Wound Reepithelialization The patient is advised to continue applying the prescribed ointment to the right axillary wound to promote further healing. A follow-up appointment is scheduled in three weeks to assess the progress of the wound healing. 2. Macular Degeneration The patient is under the care of a retina specialist for macular degeneration and is considering cataract surgery. She is advised to continue monitoring her vision and consult with her specialist regarding any changes or concerns. - Continue applying the prescribed ointment to the right axillary wound as directed. - Schedule and attend a follow-up appointment in three weeks to monitor wound healing. - Monitor vision changes and consult with the retina specialist as needed.
--- NOTE | 2025-01-13 14:05 | WC ---
PHOTO 01/12/25 RIGHT AXILLA
== END 2025-01-19 23:59 | disposition home or self-care (01) ==
LOC: WC 15:30
PROVIDERS: Referring Provider Surgery Plastic and Reconstructive Surgery; Visit Provider Surgery Plastic and Reconstructive Surgery
DX: L98.492 Non-pressure chronic ulcer of skin of other sites with fat layer exposed (principal); H35.30 Unspecified macular degeneration; Z79.899 Other long term (current) drug therapy; Z85.3 Personal history of malignant neoplasm of breast; Z92.21 Personal history of antineoplastic chemotherapy; Z92.3 Personal history of irradiation; Z90.11 Acquired absence of right breast and nipple
CPT/HCPCS: 11042; 99213; G0463

== ENCOUNTER 2025-02-02 14:42 | Outpatient (RCR) | payer MEDICARE, SELFPAY ==
[2025-02-02 14:45] VITALS: BP 152/85; PULSE 87; RESP 16; TEMP 36.8
--- NOTE | 2025-02-02 16:08 | WC ---
PHOTO 02/02/25 RIGHT AXILLA
--- NOTE | 2025-02-03 16:51 | PCM.WC.PN ---
History of Present Illness Date of Service: 02/02/25 History of Wound: Geovanna Mccain is a delightful 79-year-old female with complicated past medical history including ER/IL positive right-sided breast cancer diagnosed in 2006 treated with a mastectomy by Dr. Mckinney at [facility] with implant-based reconstruction with Dr. Torsten Amaya. She had a regional recurrence in the right axilla approximately 10 years later and underwent axillary dissection with 7 positive nodes and required radiation and is on maintenance chemotherapy. She was doing well for a while and unfortunately developed a right axillary wound several months ago. There is 2 x 2 cm area in the right axilla of central ulceration. There is minimal pain associated with it (limited sensation in her axilla after the radiation). Patient is not a smoker. 21 NOV 2024: Patient doing well overall. She has been doing wound care with [facility] twice daily. Biopsy results were reviewed with the patient today in clinic and did not demonstrate any specific findings (neutrophilic infiltrate). I discussed the findings with Dr. Drew, as well as the patient. I talked to Dr. Drew about her recent surveillance CT scan as well, which did not demonstrate any specific signs for cancer recurrence in the axilla. I recommended a repeat biopsy to be done in clinic today, which was agreed upon by Joni and Dr. Drew. 01 Dec 2024: Doing well overall. I do not have biopsy results yet from 21 Nov 2024. 18 Dec 2024: Doing well. Discussed biopsy results (negative for carcinoma/malignancy x 2, just showed ulceration). Subjective Subjective 29 December 2024: Doing well overall. Here for wound care follow up. Reports that the wound is smaller. No fevers or chills. 12 January 2025: The patient is a 79-year-old female presenting with a right axillary wound. The wound has been undergoing reepithelialization, with new skin forming over the affected area. The patient has been following wound care instructions, which include applying a specific ointment to promote healing. Attestation: Documentation on this patient encounter was supported using ambient scribe technology/ voice AI technology. The patient consented to recording for the purpose of documenting the encounter. Provider reviewed content of the generated note prior to signature. CURRENT ENCOUNTER, 02 February 2025: The patient is a 79-year-old female presenting with a right axillary wound. The wound is healing well, with dried skin and a small cluster of wounds measuring 0.5 by 1 cm, and no significant exudate or infection signs. Moistened Fibricol has been used effectively for wound care, and the presence of biofilm was noted, which requires management to prevent healing impediments. The patient has been compliant with the care regimen, aiding in the wound's positive healing trajectory. Attestation: Documentation on this patient encounter was supported using ambient scribe technology/ voice AI technology. The patient consented to recording for the purpose of documenting the encounter. Provider reviewed content of the generated note prior to signature. Objective Data Objective Data Vital Signs: Vital Signs Temp Pulse Resp BP O2 Del Method 98.2 F 87 16 152/85 H Room Air 02/02/25 14:45 02/02/25 14:45 02/02/25 14:45 02/02/25 14:45 02/02/25 14:45 Oxygen Delivery Method Room Air Charges/Coding Procedures Integumentary 111xxx-113xx: [id number] Crystal subq tissue 20 sq cm/< Physical Exam Narrative - Integumentary: Right axillary wound healing well, dried skin present, small cluster of wounds 0.5 by 1 cm, no significant exudate or infection signs Debridement Note Debridement Note Wound debrided: Right axillary wound Laterality: Right Wound Grade/Stage: 3 Type of Debridement: Excisional debridement Anesthesia Used: 4% Lidocaine Solution Depth: in the subcutaneous layer Percentage of wound debrided: 100 Instrument Used: 7mm curette Tissue Removed: Necrotic fibrinous exudate from the base of the wound in fat layer Severity: Fat Layer Exposed Amount of bleeding with debridement: Mild Bleeding Controlled with: Pressure Patient tolerated procedure: Patient tolerated procedure well Post-Debridement Measurements and Additional Note: Post-Debridement Measurements/Treatment - Nurse 1 - General Ulcer Assessment Start: 02/02/25 14:45 Freq: Status: Active Protocol: JOLIE Activity Type Activity Date Activity User E-sign Co-sign Detail Recorded Client Recorded Date Recorded By Document 02/02/25 14:45 KW [id number] 02/02/25 15:00 KW 02/02/25 14:45 - Today's Visit Information Type of service 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 Any new allergies or adverse reactions No Had a fall/change in ADL's that may No increase risk of falls Signs or symptoms of abuse and/or No neglect since last visit Have you been in the hospital since your No last visit? Has dressing in place as prescribed Yes Has compression in place as prescribed N/A Has offloadiing in place as prescribed N/A Experienced any changes in pain level or No management Left Footwear Regular Shoe Right Footwear Regular Shoe Pain Scale: 0-10 Numeric Is Patient Pain Free? Yes SHANNON - Nurse 1 - General Ulcer Measurement Start: 02/02/25 14:45 Freq: Status: Active Protocol: Activity Type Activity Date Activity User E-sign Co-sign Detail Recorded Client Recorded Date Recorded By Document 02/02/25 14:45 KW [id number] 02/02/25 15:00 KW 02/02/25 14:45 Wound Center Nurse 1 RIGHT AXILLA -Current Size (cm) - Length 1.8 -Current Size (cm) - Width 0.5 -Current Size (cm) - Depth 0.1 -Total Square Cm 0.90 -Date of Last Picture (Recall this 02/02/25 field) -Epithelialization Large 67-100% -Exudate Amt Small -Exudate Type Serosanguineous -Wound Margin Distinct, Outline Attached -Granulation Amt Small (1-33%) -Granulation Quality [place] -Necrosis Amt Large (67-100%) -Necrotic Tissue Type Adherent Slough -Texture (Tania-wound Skin Appearance) Assessed -Moisture (Tania-wound Skin Appearance) Assessed -Color (Tania-wound Skin Appearance) Assessed -Temperature (Tania-wound Skin No Abnormality Appearance) (Pt Warm) -Tenderness on Palpation (Tania-wound No Skin Appearance) -Ulcer Cleansing Soap and Water -Foul Odor after Cleansing No -Anesthetic Used 5% Lidocaine Gel WC - Nurse 2 - General Ulcer CM Notes Start: 02/02/25 14:45 Freq: Status: Active Protocol: Activity Type Activity Date Activity User E-sign Co-sign Detail Recorded Client Recorded Date Recorded By Document 02/02/25 15:05 TIMI [id number] 02/02/25 15:07 02/02/25 15:05 Wound Center Nurse 2 -Time 15:05 -Correct Patient Yes -Correct Side, Site, Position Yes -Correct Procedure Yes -Procedure Performed Yes -Type of Procedure Debridement -Clinical Debridement Subcutaneous -Tissue Removed Subcutaneous -Post Debridement (cm) - Length 0.5 -Post Debridement (cm) - Width 1.0 -Post Debridement (cm) - Depth 0.1 -Total Square (Post) (cm) 0.50 -Area of Debridement (cm) - Length 0.5 -Area of Debridement (cm) - Width 1.0 -Total Square (Area) (cm) 0.50 -Tunneling No -Undermining/Tunneling No -Circular Undermining No -Wound/Ulcer Outcome Not Healed -Ulcer Cleansing Rinsed/ Irrigated with Saline -Foul Odor after Cleansing No -Bioengineered Tissue No -Bleeding Controlled with Pressure -Treatment Response Procedure Tolerated Well -Offloading No -Debridement - Subq, 1st 20sq cm Yes Pain Scale: 0-10 Numeric Is Patient Pain Free? Yes - Nurse 3 - General Ulcer D/C NN Start: 02/02/25 14:45 Freq: Status: Active Protocol: Activity Type Activity Date Activity User E-sign Co-sign Detail Recorded Client Recorded Date Recorded By Document 02/02/25 15:11 TIMI [id number] 02/02/25 15:12 02/02/25 15:11 Wound Care Center Nurse 3 RIGHT AXILLA -Ulcer Cleansing Rinsed/ Irrigated with Saline -Foul Odor after Cleansing No -Primary Dressing Applied Fibracol Plus 4x4 -Primary Dressing Covered/Secured with Dry Gauze, Secured with Tape -Fibracol Plus 4x4 1 Pain Scale: 0-10 Numeric Is Patient Pain Free? Yes WC - Visit Discharge Discharge Condition Stable Ambulatory Status Ambulatory Transportation Private Auto Medication Reconcilliation completed & Yes provided to patient/care provider Clinical Summary of Care Provided Yes Assessment/Plan Assessment/Plan (1) Open wound of axillary region, complicated: CODE(S): S41.109A - Unspecified open wound of unspecified upper arm, initial encounter PLAN: Plan Assessment and Plan The 79-year-old female presents with a right axillary wound that is healing well, with dried skin and a small cluster of wounds measuring 0.5 by 1 cm, and no significant exudate or signs of infection. Moistened Fibricol has been effective in wound care, and the presence of biofilm requires management to prevent healing impediments. The patient's compliance with the wound care regimen has contributed to the positive healing trajectory. 1. Right Axillary Wound The plan for the right axillary wound includes continued use of moistened Fibricol to maintain the wound's condition and manage the biofilm presence to prevent healing impediments. The patient is advised to return for follow-up in three weeks to assess the wound's progress. - Continue using moistened Fibricol on the wound as directed. - Monitor the wound for any signs of infection or changes. - Return for follow-up in three weeks to assess healing progress.
== END 2025-02-19 23:59 | disposition home or self-care (01) ==
LOC: WC 14:42
PROVIDERS: Referring Provider Surgery Plastic and Reconstructive Surgery; Visit Provider Surgery Plastic and Reconstructive Surgery
DX: L98.492 Non-pressure chronic ulcer of skin of other sites with fat layer exposed (principal); Z79.899 Other long term (current) drug therapy; Z85.3 Personal history of malignant neoplasm of breast; Z92.21 Personal history of antineoplastic chemotherapy; Z92.3 Personal history of irradiation; Z90.11 Acquired absence of right breast and nipple
CPT/HCPCS: 11042

== ENCOUNTER 2025-03-16 13:30 | Outpatient (RCR) | payer MEDICARE, SELFPAY ==
[2025-03-02 13:30] VITALS: BP 145/97; PULSE 83; RESP 18; TEMP 36.9
--- NOTE | 2025-03-02 15:30 | HP.PCM_ITS ---
History of Present Illness
--- NOTE | 2025-03-02 15:30 | PCM.WC.HP ---
History of Present Illness Date of Service: 03/02/25 History of Wound: The patient is seen today on behalf of the patient's regular Wound Center provider, Dr. Gerry Alvarez, and whose medical history has been reviewed, as documented below: Geovanna Mccain is a delightful 79-year-old female with complicated past medical history including ER/LA positive right-sided breast cancer diagnosed in 2006 treated with a mastectomy by Dr. Mckinney at [facility] with implant-based reconstruction with Dr. Torsten Amaya. She had a regional recurrence in the right axilla approximately 10 years later and underwent axillary dissection with 7 positive nodes and required radiation and is on maintenance chemotherapy. The patient was last seen and evaluated by her oncologist, Dr. Eddie Drew, on February 06, 2025. Dr. Drew's clinical assessment has been reviewed. The patient was doing well, but ultimately developed a right axillary wound several months prior to presentation. There is minimal pain associated with it (limited sensation in her axilla after the radiation). The patient is not a smoker. She claims to consume a healthy, well-balanced diet. The patient is not diabetic. A biopsy of the wound was performed on November 21, 2024, which was negative for malignancy. [facility] Medical History History of cancer chemotherapy History of radiation therapy History of right breast cancer Home Medications ?Medication ?Instructions ?Recorded ?Last Taken ?Type cholecalciferol (vitamin D3) 10 10 mcg PO QDAY 11/06/24 Unknown History mcg (400 unit) capsule multivitamin 1 tab PO QDAY 11/06/24 Unknown History sertraline 50 mg tablet (Zoloft) 50 mg PO QDAY 11/06/24 Unknown History simvastatin 20 mg tablet 20 mg PO QDAY 11/06/24 Unknown History Allergy/AdvReac Type Severity Reaction Status Date / Time No Known Allergies Allergy Unverified 11/21/24 13:05 Surgical History History of lymph node dissection of axilla History of partial mastectomy of right breast Vital Signs Vital Signs Vital Signs: 03/02/25 13:30 Temperature 98.4 F Temperature Source Temporal Pulse Rate 83 Respiratory Rate 18 Blood Pressure 145/97 H Blood Pressure Mean 113 Physical Exam Const alert, oriented x3, no apparent distress, average body habitus, no limitations and well nourished General Appearance: cooperative, comfortable, well kempt and well developed Orientation / Consciousness: awake, oriented to person, oriented to place and oriented to time HEENT normocephalic and head/scalp atraumatic Head and Scalp: normal to inspection, normocephalic and atraumatic Face and Sinus: normal facial exam Nose: external nose normal External Ear: external ears normal Eyes EOMs intact bilaterally Eyes Narrative: Ptosis of the left eyelid is observed. General Eye: normal appearance of both eyes Eyelid: eyelids abnormal left upper eyelid (Ptosis) Neck full ROM Resp normal respiratory effort, normal air movement, no retractions and no use of accessory muscles Effort and Inspection: able to speak in complete sentences Extremity no calf tenderness General Extremity: Negative for clubbing or cyanosis Skin Wound Narrative: A small, full-thickness wound is noted in the patient's right axilla. Dimensions are documented elsewhere. The wound appears slightly smaller than previously documented. Wound margins are well beveled. The base of the wound demonstrates a moderate amount of slough and devitalized tissue. The wound appears to be mildly desiccated. There is no sign of infection or cellulitis. Hypervascularity is noted in the dermis surrounding the wound. Neuro oriented x3, CN's II-XII intact bilaterally, moves all extremities, no focal motor deficits and no sensory deficits noted Sensorium / Orientation: awake, alert, oriented to person, oriented to place and oriented to time Speech: speech normal Psych Appearance: grossly normal and appropriate Attitude: calm Activity / Motor Behavior: appropriate eye contact Speech: normal speech Mood & Affect: euthymic mood Thought Process: normal thought process Thought Content: normal thought content Attention / Concentration: attention grossly intact Debridement Note Debridement Note Wound debrided: Right axillary wound Laterality: Right Type of Debridement: Excisional debridement Anesthesia Used: 5% Lidocaine Gel Depth: Down to and including healthy tissue and in the subcutaneous layer Percentage of wound debrided: 100 Instrument Used: 3mm curette Tissue Removed: Slough and devitalized tissue Severity: Fat Layer Exposed Amount of bleeding with debridement: Mild Bleeding Controlled with: Compression and gauze Patient tolerated procedure: Patient tolerated procedure well Post-Debridement Measurements and Additional Note: Post-Debridement Measurements/Treatment WC - Nurse 1 - General Ulcer Assessment Start: 03/02/25 13:30 Freq: Status: Active Protocol: [email or web address] Activity Type Activity Date Activity User E-sign Co-sign Detail Recorded Client Recorded Date Recorded By Document 03/02/25 13:30 TERESO [id number] 03/02/25 13:35 DL 03/02/25 13:30 WC - Today's Visit Information Type of service Follow-up Visit (Physician/DRAFTER PATENT ) Arrival Mode Ambulatory Transfer Assistance None Patient Identification Verified (Name & Yes ) Patient Requires Transmission-Based No Precautions Vital Signs Temperature (97.8 F-99.1 F) 98.4 F Temperature Source Temporal Pulse Rate (60-100) 83 Respiratory Rate (12-18) 18 Respiratory rate source Ausculation Blood Pressure (90/60-120/80) 145/97 H Blood Pressure Mean 113 History Since Last Visit- (Skip if this is Patient's initial visit) Have you changed medications since your No last visit? Any new allergies or adverse reactions No Had a fall/change in ADL's that may No increase risk of falls Signs or symptoms of abuse and/or No neglect since last visit Have you been in the hospital since your No last visit? Has dressing in place as prescribed Yes Has compression in place as prescribed N/A Has offloadiing in place as prescribed N/A Experienced any changes in pain level or No management Left Footwear Regular Shoe Right Footwear Regular Shoe Pain Scale: 0-10 Numeric Is Patient Pain Free? Yes - Nurse 1 - General Ulcer Measurement Start: 03/02/25 13:30 Freq: Status: Active Protocol: Activity Type Activity Date Activity User E-sign Co-sign Detail Recorded Client Recorded Date Recorded By Document 03/02/25 13:30 DL [id number] 03/02/25 13:35 DL 03/02/25 13:30 Wound Center Nurse 1 RIGHT AXILLA -Current Size (cm) - Length 0.6 -Current Size (cm) - Width 0.5 -Current Size (cm) - Depth 0.1 -Total Square Cm 0.30 -Date of Last Picture (Recall this 03/02/25 field) -Exudate Amt Small -Exudate Type Serosanguineous -Wound Margin Distinct, Outline Attached -Texture (Tania-wound Skin Appearance) Assessed -Moisture (Tania-wound Skin Appearance) Assessed,Dry/ Scaly -Color (Tania-wound Skin Appearance) Assessed -Temperature (Tania-wound Skin No Abnormality Appearance) (Pt Warm) -Tenderness on Palpation (Tania-wound No Skin Appearance) -Ulcer Cleansing Wound Cleanser -Foul Odor after Cleansing No -Anesthetic Used 5% Lidocaine Gel - Nurse 2 - General Ulcer CM Notes Start: 03/02/25 13:30 Freq: Status: Active Protocol: Activity Type Activity Date Activity User E-sign Co-sign Detail Recorded Client Recorded Date Recorded By Document 03/02/25 13:51 [id number] 03/02/25 13:55 03/02/25 13:51 Wound Center Nurse 2 -Time 13:55 -Correct Patient Yes -Correct Side, Site, Position Yes -Correct Procedure Yes -Procedure Performed Yes -Type of Procedure Debridement -Clinical Debridement Subcutaneous -Tissue Removed Subcutaneous -Post Debridement (cm) - Length 0.8 -Post Debridement (cm) - Width 0.7 -Post Debridement (cm) - Depth 0.1 -Total Square (Post) (cm) 0.56 -Area of Debridement (cm) - Length 0.8 -Area of Debridement (cm) - Width 0.7 -Total Square (Area) (cm) 0.56 -Tunneling No -Undermining/Tunneling No -Circular Undermining No -Wound/Ulcer Outcome Not Healed -Ulcer Cleansing Rinsed/ Irrigated with Saline -Foul Odor after Cleansing No -Bioengineered Tissue No -Bleeding Controlled with Pressure -Treatment Response Procedure Tolerated Well -Offloading No -Debridement - Subq, 1st 20sq cm Yes Pain Scale: 0-10 Numeric Is Patient Pain Free? Yes - Nurse 3 - General Ulcer D/C NN Start: 03/02/25 13:30 Freq: Status: Active Protocol: Activity Type Activity Date Activity User E-sign Co-sign Detail Recorded Client Recorded Date Recorded By Document 03/02/25 14:27 [id number] 03/02/25 14:28 03/02/25 14:27 Wound Care Center Nurse 3 RIGHT AXILLA -Ulcer Cleansing Rinsed/ Irrigated with Saline -Foul Odor after Cleansing No -Primary Dressing Applied C Hydrogel -Primary Dressing Covered/Secured with Dry Gauze, Secured with Tape -Hydrogel 1 Pain Scale: 0-10 Numeric Is Patient Pain Free? Yes - Visit Discharge Discharge Condition Stable Ambulatory Status Ambulatory,Cane Transportation Private Auto Medication Reconcilliation completed & Yes provided to patient/care provider Clinical Summary of Care Provided Yes Charges/Coding Multi Select Codes Visit Charges Office Visit/Consults: 30877 OV L4 New 45 min Integumentary Integumentary CPT Codes: 45719 Crystal subq tissue 20 sq cm/< Assessment/Plan Assessment/Plan (1) Open wound of axillary region, complicated: CODE(S): S41.109A - Unspecified open wound of unspecified upper arm, initial encounter QUALIFIERS: Encounter type: initial encounter Laterality: right Qualified Code(s): S41.101A - Unspecified open wound of right upper arm, initial encounter (2) History of right breast cancer: CODE(S): Z85.3 - Personal history of malignant neoplasm of breast (3) History of partial mastectomy of right breast: CODE(S): Z90.11 - Acquired absence of right breast and nipple (4) History of lymph node dissection of axilla: CODE(S): Z98.890 - Other specified postprocedural states (5) History of radiation therapy: CODE(S): Z92.3 - Personal history of irradiation (6) History of cancer chemotherapy: CODE(S): Z92.21 - Personal history of antineoplastic chemotherapy PLAN: Plan This is a 79-year-old female with a history of right breast cancer diagnosed in 2006. Patient underwent a partial mastectomy with reconstruction at that time. Approximately 10 years later, the patient suffered a recurrence, and underwent an axillary lymph node dissection with 7 positive nodes. She subsequently required radiation therapy, and remains on maintenance chemotherapy to the present time. Several months prior to presentation, the patient developed a wound in her right axilla. The wound appears to be slightly smaller today, but appears somewhat desiccated. We are to transition from the use of moistened Fibracol to the use of collagen hydrogel, which is to be applied topically on a daily basis. The patient has been provided the product for use, and instructed in the appropriate means of application. Patient has been encouraged to maintain a healthy, well-balanced diet. She is to return for reevaluation by Dr. Alvarez in 2 weeks. Total time: 45 minutes
--- NOTE | 2025-03-03 09:24 | WC ---
PHOTO-RIGHT AXILLA 03/02/25
[2025-03-16 13:23] VITALS: BP 166/67; PULSE 100; RESP 14; TEMP 35.9
--- NOTE | 2025-03-16 13:44 | PN.PCM_ITS ---
History of Present Illness
--- NOTE | 2025-03-16 13:44 | PCM.WC.PN ---
History of Present Illness Date of Service: 03/16/25 History of Wound: The patient is seen today on behalf of the patient's regular Wound Center provider, Dr. Gerry Alvarez, and whose medical history has been reviewed, as documented below: Geovanna Mccain is a delightful 79-year-old female with complicated past medical history including ER/LA positive right-sided breast cancer diagnosed in 2006 treated with a mastectomy by Dr. Mckinney at [facility] with implant-based reconstruction with Dr. Torsten Amaya. She had a regional recurrence in the right axilla approximately 10 years later and underwent axillary dissection with 7 positive nodes and required radiation and is on maintenance chemotherapy. The patient was last seen and evaluated by her oncologist, Dr. Eddie Drew, on February 06, 2025. Dr. Drew's clinical assessment has been reviewed. The patient was doing well, but ultimately developed a right axillary wound several months prior to presentation. There is minimal pain associated with it (limited sensation in her axilla after the radiation). The patient is not a smoker. She claims to consume a healthy, well-balanced diet. The patient is not diabetic. A biopsy of the wound was performed on November 21, 2024, which was negative for malignancy. Subjective Subjective 29 December 2024: Doing well overall. Here for wound care follow up. Reports that the wound is smaller. No fevers or chills. 12 January 2025: The patient is a 79-year-old female presenting with a right axillary wound. The wound has been undergoing reepithelialization, with new skin forming over the affected area. The patient has been following wound care instructions, which include applying a specific ointment to promote healing. Attestation: Documentation on this patient encounter was supported using ambient scribe technology/ voice AI technology. The patient consented to recording for the purpose of documenting the encounter. Provider reviewed content of the generated note prior to signature. 02 February 2025: The patient is a 79-year-old female presenting with a right axillary wound. The wound is healing well, with dried skin and a small cluster of wounds measuring 0.5 by 1 cm, and no significant exudate or infection signs. Moistened Fibricol has been used effectively for wound care, and the presence of biofilm was noted, which requires management to prevent healing impediments. The patient has been compliant with the care regimen, aiding in the wound's positive healing trajectory. Attestation: Documentation on this patient encounter was supported using ambient scribe technology/ voice AI technology. The patient consented to recording for the purpose of documenting the encounter. Provider reviewed content of the generated note prior to signature. CURRENT ENCOUNTER, 16 March 2025: Doing well overall. Switched to Hydrogel by Dr. Aj 2 weeks ago. Tolerating well. Objective Data Objective Data Vital Signs: Vital Signs Temp Pulse Resp BP 96.6 F L 100 14 166/67 H 03/16/25 13:23 03/16/25 13:23 03/16/25 13:23 03/16/25 13:23 Charges/Coding Procedures Integumentary [id number]: [id number] Crystal subq tissue 20 sq cm/< Physical Exam Narrative - Integumentary: Right axillary wound healing well, Small single wound, stage 3 (0.1 mm depth) 0.5 by 0.5 cm, no significant exudate or infectious signs Debridement Note Debridement Note Wound debrided: Right axilla Laterality: Right Wound Grade/Stage: 3 Type of Debridement: Excisional debridement Anesthesia Used: 4% Lidocaine Solution Depth: Down to and including healthy tissue and in the subcutaneous layer Percentage of wound debrided: 100 Instrument Used: 3mm curette Tissue Removed: Fibrinous exudate, biofilm Severity: Fat Layer Exposed Amount of bleeding with debridement: Mild Bleeding Controlled with: Compression and gauze Patient tolerated procedure: Patient tolerated procedure well Post-Debridement Measurements and Additional Note: Post-Debridement Measurements/Treatment - Nurse 1 - General Ulcer Assessment Start: 03/02/25 13:30 Freq: Status: Active Protocol: [email or web address] Activity Type Activity Date Activity User E-sign Co-sign Detail Recorded Client Recorded Date Recorded By Document 03/02/25 13:30 DL [id number] 03/02/25 13:35 DL Document 03/16/25 13:23 ML [id number] 03/16/25 13:25 ML 03/02/25 03/16/25 13:30 13:23 - Today's Visit Information Type of service Follow-up Visit Follow-up Visit (Physician/HEAD DOFFER (Physician/HEAD DOFFER ) ) Arrival Mode Ambulatory Ambulatory Transfer Assistance None None Patient Identification Verified (Name & Yes Yes ) Patient Requires Transmission-Based No No Precautions Vital Signs Temperature (97.8 F-99.1 F) 98.4 F 96.6 F L Temperature Source Temporal Temporal Pulse Rate (60-100) 83 100 Pulse Location Monitor Respiratory Rate (12-18) 18 14 Respiratory rate source Ausculation Observation Blood Pressure (90/60-120/80) 145/97 H 166/67 H Blood Pressure Mean (mm Hg) 113 100 Source Monitor Position Sitting Blood Pressure Location Left Arm History Since Last Visit- (Skip if this is Patient's initial visit) Have you changed medications since your No No last visit? Any new allergies or adverse reactions No No Had a fall/change in ADL's that may No No increase risk of falls Signs or symptoms of abuse and/or No No neglect since last visit Have you been in the hospital since your No No last visit? Has dressing in place as prescribed Yes Yes Has compression in place as prescribed N/A N/A Has offloadiing in place as prescribed N/A N/A Experienced any changes in pain level or No No management Left Footwear Regular Shoe Right Footwear Regular Shoe Pain Scale: 0-10 Numeric Is Patient Pain Free? Yes Yes WC - Nurse 1 - General Ulcer Measurement Start: 03/02/25 13:30 Freq: Status: Active Protocol: Activity Type Activity Date Activity User E-sign Co-sign Detail Recorded Client Recorded Date Recorded By Document 03/02/25 13:30 DL [id number] 03/02/25 13:35 DL Document 03/16/25 13:23 ML [id number] 03/16/25 13:25 ML 03/02/25 03/16/25 13:30 13:23 Wound Center Nurse 1 RIGHT AXILLA -Current Size (cm) - Length 0.6 0.5 -Current Size (cm) - Width 0.5 0.8 -Current Size (cm) - Depth 0.1 0.1 -Total Square Cm 0.30 0.40 -Date of Last Picture (Recall this 03/02/25 field) -Exudate Amt Small Small -Exudate Type Serosanguineous Serosanguineous -Wound Margin Distinct, Distinct, Outline Outline Attached Attached -Granulation Amt Small (1-33%) -Slough/Fibrin Yes -Necrosis Amt Small (1-33%) -Necrotic Tissue Type Adherent Slough -Texture (Tania-wound Skin Appearance) Assessed Assessed -Moisture (Tania-wound Skin Appearance) Assessed,Dry/ Assessed Scaly -Color (Tania-wound Skin Appearance) Assessed Assessed -Temperature (Tania-wound Skin No Abnormality No Abnormality Appearance) (Pt Warm) (Pt Warm) -Tenderness on Palpation (Tania-wound No Skin Appearance) -Ulcer Cleansing Wound Cleanser Rinsed/ Irrigated with Saline -Foul Odor after Cleansing No No -Anesthetic Used 5% Lidocaine 5% Lidocaine Gel Gel WC - Nurse 2 - General Ulcer CM Notes Start: 03/02/25 13:30 Freq: Status: Active Protocol: Activity Type Activity Date Activity User E-sign Co-sign Detail Recorded Client Recorded Date Recorded By Document 03/02/25 13:51 [id number] 03/02/25 13:55 Document 03/16/25 13:38 [id number] 03/16/25 13:39 03/02/25 03/16/25 13:51 13:38 Wound Center Nurse 2 RIGHT AXILLA -Time 13:55 13:39 -Correct Patient Yes Yes -Correct Side, Site, Position Yes Yes -Correct Procedure Yes Yes -Procedure Performed Yes Yes -Type of Procedure Debridement Debridement -Clinical Debridement Subcutaneous Subcutaneous -Tissue Removed Subcutaneous Subcutaneous -Post Debridement (cm) - Length 0.8 0.5 -Post Debridement (cm) - Width 0.7 0.5 -Post Debridement (cm) - Depth 0.1 0.1 -Total Square (Post) (cm) 0.56 0.25 -Area of Debridement (cm) - Length 0.8 0.5 -Area of Debridement (cm) - Width 0.7 0.5 -Total Square (Area) (cm) 0.56 0.25 -Tunneling No No -Undermining/Tunneling No No -Circular Undermining No No -Wound/Ulcer Outcome Not Healed Not Healed -Ulcer Cleansing Rinsed/ Rinsed/ Irrigated with Irrigated with Saline Saline -Foul Odor after Cleansing No No -Bioengineered Tissue No No -Bleeding Controlled with Pressure Pressure -Treatment Response Procedure Procedure Tolerated Well Tolerated Well -Offloading No No -Debridement - Subq, 1st 20sq cm Yes Yes Pain Scale: 0-10 Numeric Is Patient Pain Free? Yes Yes WC - Nurse 3 - General Ulcer D/C NN Start: 03/02/25 13:30 Freq: Status: Active Protocol: Activity Type Activity Date Activity User E-sign Co-sign Detail Recorded Client Recorded Date Recorded By Document 03/02/25 14:27 TIMI [id number] 03/02/25 14:28 TIMI 03/02/25 14:27 Wound Care Center Nurse 3 RIGHT AXILLA -Ulcer Cleansing Rinsed/ Irrigated with Saline -Foul Odor after Cleansing No -Primary Dressing Applied C Hydrogel -Primary Dressing Covered/Secured with Dry Gauze, Secured with Tape -Hydrogel 1 Pain Scale: 0-10 Numeric Is Patient Pain Free? Yes WC - Visit Discharge Discharge Condition Stable Ambulatory Status Ambulatory,Cane Transportation Private Auto Medication Reconcilliation completed & Yes provided to patient/care provider Clinical Summary of Care Provided Yes Assessment/Plan Assessment/Plan (1) Open wound of axillary region, complicated: CODE(S): S41.109A - Unspecified open wound of unspecified upper arm, initial encounter QUALIFIERS: Encounter type: initial encounter Laterality: right Qualified Code(s): S41.101A - Unspecified open wound of right upper arm, initial encounter PLAN: Right axillary wound Continue daily Hydrogel and gauze/tape dressing changes. F/u in 4 weeks to check progress Patient happy with the plan
--- NOTE | 2025-03-17 10:35 | WC ---
PHOTO-AXILLA 03/16/25
== END 2025-03-22 23:59 | disposition home or self-care (01) ==
LOC: WC 13:30
PROVIDERS: Referring Provider Surgery Plastic and Reconstructive Surgery; Visit Provider Surgery Plastic and Reconstructive Surgery
DX: L98.492 Non-pressure chronic ulcer of skin of other sites with fat layer exposed (principal); X58.XXXA Exposure to other specified factors, initial encounter; Z79.899 Other long term (current) drug therapy; Z90.11 Acquired absence of right breast and nipple; Z85.3 Personal history of malignant neoplasm of breast; Z92.21 Personal history of antineoplastic chemotherapy; Z92.3 Personal history of irradiation
CPT/HCPCS: 11042

== ENCOUNTER 2025-04-13 13:46 | Outpatient (RCR) | payer MEDICARE, SELFPAY ==
[2025-04-13 14:36] VITALS: BP 163/96; PULSE 79; RESP 16; TEMP 36.2
--- NOTE | 2025-04-14 10:18 | WC ---
PHOTO-AXILLA 04/13/25
--- NOTE | 2025-04-14 10:32 | PN.PCM_ITS ---
History of Present Illness Date of Service: 04/13/25 History of Wound: The patient is seen today on behalf of the patient's regular Wound Center provider, Dr. Gerry Alvarez, and whose medical history has been reviewed, as documented below: Geovanna Mccain is a delightful 79-year-old female with complicated past medical history including ER/ID positive right-sided breast cancer diagnosed in 2006 treated with a mastectomy by Dr. Mckinney at [facility] with implant-based reconstruction with Dr. Torsten Amaya. She had a regional recurrence in the right axilla approximately 10 years later and underwent axillary dissection with 7 positive nodes and required radiation and is on maintenance chemotherapy. The patient was last seen and evaluated by her oncologist, Dr. Eddie Drew, on February 06, 2025. Dr. Drew's clinical assessment has been reviewed. The patient was doing well, but ultimately developed a right axillary wound several months prior to presentation. There is minimal pain associated with it (limited sensation in her axilla after the radiation). The patient is not a smoker. She claims to consume a healthy, well-balanced diet. The patient is not diabetic. A biopsy of the wound was performed on November 21, 2024, which was negative for malignancy. Subjective Subjective 29 December 2024: Doing well overall. Here for wound care follow up. Reports that the wound is smaller. No fevers or chills. 12 January 2025: The patient is a 79-year-old female presenting with a right axillary wound. The wound has been undergoing reepithelialization, with new skin forming over the affected area. The patient has been following wound care instructions, which include applying a specific ointment to promote healing. Attestation: Documentation on this patient encounter was supported using ambient scribe technology/ voice AI technology. The patient consented to recording for the purpose of documenting the encounter. Provider reviewed content of the generated note prior to signature. 02 February 2025: The patient is a 79-year-old female presenting with a right axillary wound. The wound is healing well, with dried skin and a small cluster of wounds measuring 0.5 by 1 cm, and no significant exudate or infection signs. Moistened Fibricol has been used effectively for wound care, and the presence of biofilm was noted, which requires management to prevent healing impediments. The patient has been compliant with the care regimen, aiding in the wound's positive healing trajectory. Attestation: Documentation on this patient encounter was supported using ambient scribe technology/ voice AI technology. The patient consented to recording for the purpose of documenting the encounter. Provider reviewed content of the generated note prior to signature. 16 March 2025: Doing well overall. Switched to Hydrogel by Dr. Aj 2 weeks ago. Tolerating well. CURRENT ENCOUNTER, 13 Apr 2025: Doing well overall and is healed Objective Data Objective Data Vital Signs: Vital Signs Temp Pulse Resp BP 97.2 F L 79 16 163/96 H 04/13/25 14:36 04/13/25 14:36 04/13/25 14:36 04/13/25 14:36 Charges/Coding Visit Charges Office Visits / Consults: [id number] OV L2 Est 10min Physical Exam Narrative Healed right axillary wound Debridement Note Debridement Note Post-Debridement Measurements and Additional Note: Post-Debridement Measurements/Treatment WC - Nurse 1 - General Ulcer Assessment Start: 04/13/25 14:36 Freq: Status: Active Protocol: JOLIE Activity Type Activity Date Activity User E-sign Co-sign Detail Recorded Client Recorded Date Recorded By Document 04/13/25 14:36 CP [id number] 04/13/25 14:41 CP 04/13/25 14:36 WC - Today's Visit Information Type of service Follow-up Visit (Physician/GEOPHYSICAL COMPUTER ) Arrival Mode Ambulatory Patient Identification Verified (Name & Yes ) Patient Requires Transmission-Based No Precautions Safety Precautions NA Vital Signs Temperature (97.8 F-99.1 F) 97.2 F L Temperature Source Temporal Pulse Rate (60-100) 79 Pulse Location Monitor Respiratory Rate (12-18) 16 Respiratory rate source Observation Blood Pressure (90/60-120/80) 163/96 H Blood Pressure Mean (mm Hg) 118 Source Monitor Position Sitting Blood Pressure Location Left Arm History Since Last Visit- (Skip if this is Patient's initial visit) Have you changed medications since your No last visit? Any new allergies or adverse reactions No Had a fall/change in ADL's that may No increase risk of falls Signs or symptoms of abuse and/or No neglect since last visit Have you been in the hospital since your No last visit? Has dressing in place as prescribed Yes Has compression in place as prescribed N/A Has offloadiing in place as prescribed N/A Experienced any changes in pain level or No management Pain Scale: 0-10 Numeric Is Patient Pain Free? Yes - Nurse 1 - General Ulcer Measurement Start: 04/13/25 14:36 Freq: Status: Active Protocol: Activity Type Activity Date Activity User E-sign Co-sign Detail Recorded Client Recorded Date Recorded By Document 04/13/25 14:36 CAR [id number] 04/13/25 14:41 04/13/25 14:36 Wound Center Nurse 1 RIGHT AXILLA -Current Size (cm) - Length 0 -Current Size (cm) - Width 0 -Current Size (cm) - Depth 0 -Total Square Cm 0 -Date of Last Picture (Recall this 04/13/25 field) -Photo Taken Yes -Epithelialization Large 67-100% WC - Nurse 2 - General Ulcer CM Notes Start: 04/13/25 14:36 Freq: Status: Active Protocol: Activity Type Activity Date Activity User E-sign Co-sign Detail Recorded Client Recorded Date Recorded By Document 04/13/25 15:01 [id number] 04/13/25 15:02 04/13/25 15:01 Wound Center Nurse 2 -Correct Patient Yes -Correct Side, Site, Position No -Correct Procedure No -Procedure Performed No -Post Debridement (cm) - Length 0 -Post Debridement (cm) - Width 0 -Post Debridement (cm) - Depth 0 -Total Square (Post) (cm) 0 -Area of Debridement (cm) - Length 0 -Area of Debridement (cm) - Width 0 -Total Square (Area) (cm) 0 -Wound/Ulcer Outcome Healed- Epithelialized Pain Scale: 0-10 Numeric Is Patient Pain Free? Yes - Nurse 3 - General Ulcer D/C NN Start: 04/13/25 14:36 Freq: Status: Active Protocol: Activity Type Activity Date Activity User E-sign Co-sign Detail Recorded Client Recorded Date Recorded By Document 04/13/25 15:02 [id number] 04/13/25 15:02 04/13/25 15:02 Is Patient Pain Free? Yes - Visit Discharge Discharge Condition Stable Ambulatory Status Ambulatory Transportation Private Auto Medication Reconcilliation completed & Yes provided to patient/care provider Clinical Summary of Care Provided Yes Assessment/Plan Assessment/Plan (1) History of radiation therapy: CODE(S): Z92.3 - Personal history of irradiation (2) Open wound of axillary region, complicated: CODE(S): S41.109A - Unspecified open wound of unspecified upper arm, initial encounter QUALIFIERS: Encounter type: initial encounter Laterality: right Qualified Code(s): S41.101A - Unspecified open wound of right upper arm, initial encounter PLAN: Plan Wound is healed I talked to the patient extensively about surveillance for any further wounds in the setting of radiation as this could either be a regional recurrence of her breast cancer or a primary radiation-related malignancy. In this case I believe the wound was secondary to tension/pull of the tight radiated tissue in her axilla which developed into a wound. She will keep the skin moisturized and watch for wounds. She is not interested in any kind of reconstruction of the axilla at this time for scars or tightness, and I agree with this. Patient will follow-up with me as needed and continue to see Dr. Drew. Patient happy with the plan
== END 2025-04-21 15:50 | disposition home or self-care (01) ==
LOC: WC 13:46
PROVIDERS: Referring Provider Surgery Plastic and Reconstructive Surgery; Visit Provider Surgery Plastic and Reconstructive Surgery
DX: Z09 Encounter for follow-up examination after completed treatment for conditions other than malignant neoplasm (principal); Z92.3 Personal history of irradiation
CPT/HCPCS: 99212; G0463